=== PATIENT | female | born 1975 | race Caucasian/White ===

== ENCOUNTER 2017-11-11 06:40 | Day surgery (SDC) | payer OTHER ==
[2017-11-11] MEDS ORDERED: SOD CHLORIDE 0.9% 1,000 ML IV (07:00)
[2017-11-11] MEDS ORDERED: CEFAZOLIN 2 GM/50 ML (PMX) 50 ML IVPB (07:00)
[2017-11-11] MEDS ORDERED: PROPOFOL 20 ML (09:13)
[2017-11-11] MEDS ORDERED: NEOSTIGMINE 3 MG/3 ML SYRINGE (09:13)
[2017-11-11] MEDS ORDERED: CEFAZOLIN 1 GM INJ (09:13)
[2017-11-11] MEDS ORDERED: GLYCOPYRROLATE 0.4 MG INJ (09:13)
[2017-11-11] MEDS ORDERED: ROCURONIUM 50 MG INJ (09:13)
[2017-11-11] MEDS ORDERED: ONDANSETRON 4 MG INJ (09:14)
[2017-11-11] MEDS ORDERED: FENTAnyl 50 MCG/ML VIAL (09:14)
[2017-11-11] MEDS ORDERED: DEXAMETHASONE 4 MG/ML 1 ML INJ (09:14)
[2017-11-11] MEDS ORDERED: MIDAZOLAM 1 MG/ML 2 ML INJ (09:14)
[2017-11-11] MEDS ORDERED: ROPIVACAINE 0.5 % 30 ML VIAL (09:18)
[2017-11-11] MEDS ORDERED: ONDANSETRON 4 MG INJ IV (10:00)
[2017-11-11] MEDS ORDERED: hydrALAzine 20 MG INJ IV (10:00)
[2017-11-11] MEDS ORDERED: ALBUTEROL 0.083% (NEB) 2.5 MG/3 ML AMP HHN (10:00)
[2017-11-11] MEDS ORDERED: HYDROmorphONE 1 MG/5 ML IV SYRINGE IV ×2 (10:00)
[2017-11-11] MEDS ORDERED: MEPERIDINE 25 MG INJ IV (10:00)
[2017-11-11] MEDS ORDERED: OXYCODONE/ACETAMINOPHEN (5/325) TAB PO (10:00)
[2017-11-11] MEDS ORDERED: TRIMETHOBENZAMIDE 100 MG/ML VIAL IM (10:00)
[2017-11-11] MEDS ORDERED: IPRATROPIUM (NEB) 0.5 MG/2.5 ML AMP HHN (10:00)
[2017-11-11] MEDS ORDERED: MIDAZOLAM 1 MG/ML 2 ML INJ IV (10:00)
[2017-11-11] MEDS ORDERED: DIPHENHYDRAMINE 50 MG INJ IV (10:00)
[2017-11-11] MEDS ORDERED: EPHEDrine SULFATE 50 MG/5 ML SYG IV (10:00)
[2017-11-11] MEDS ORDERED: FENTAnyl 50 MCG/ML VIAL IV ×2 (10:00)
[2017-11-11] MEDS ORDERED: LABETALOL HCL 20MG INJ IV (10:00)
[2017-11-11] MEDS ORDERED: KETOROLAC 30 MG INJ (10:09)
[2017-11-11] MEDS: FENTAnyl 50 MCG/ML VIAL IV (10:22)
[2017-11-11] MEDS ORDERED: HYDROCODONE/APAP (5/325) TAB PO (10:30)
[2017-11-11] MEDS: HYDROmorphONE 1 MG/5 ML IV SYRINGE IV (10:54)
[2017-11-11] MEDS: OXYCODONE/ACETAMINOPHEN (5/325) TAB PO (12:28)
== END 2017-11-11 12:42 | disposition home or self-care (01) ==
LOC: SDS 06:40
DX: K80.10 Calculus of gallbladder with chronic cholecystitis without obstruction (principal)
CPT/HCPCS: 47562